=== PATIENT | female | born 2000 | race Caucasian/White ===

== ENCOUNTER 2022-05-02 12:47 | Inpatient (IN) | payer BC ==
[2022-05-02] MEDS ORDERED: Nalbuphine 10 MG/0.5 ML Syringe IVPUSH PRN (12:51)
[2022-05-02] MEDS ORDERED: Ondansetron 4 MG/2 ML SDV IVPUSH PRN (12:51)
[2022-05-02] MEDS ORDERED: Sodium Chloride 0.9% 10 ML Syringe FLUSH PRN (12:51)
[2022-05-02] MEDS ORDERED: Oxytocin/Lactated Ringers 10 UNIT/1,000 ML BAG IV SCH ×2 (13:00)
[2022-05-02] MEDS ORDERED: Lactated Ringers 1,000 ML IV SCH (13:00)
[2022-05-02] MEDS ORDERED: Sodium Chloride 0.9% 10 ML Syringe FLUSH SCH (21:00)
[2022-05-02] MEDS ORDERED: Lidocaine 1% 50 ML MDV ONE (22:04)
[2022-05-02] MEDS ORDERED: Lidocaine 1% 20 ML MDV INFILT ONE (22:27)
[2022-05-02] MEDS ORDERED: Benzocaine/Menthol 20%-0.5% Spray 78 GM Cannister TOP PRN (22:58)
[2022-05-02] MEDS ORDERED: Witch Hazel Medicated Pads 40/Jar TOP PRN (22:58)
[2022-05-02] MEDS ORDERED: Acetaminophen 325 MG Tab PO PRN (22:58)
[2022-05-02] MEDS ORDERED: Docusate Sodium 100 MG Cap PO PRN (22:58)
[2022-05-03] MEDS: Ibuprofen 600 MG Tab PO PRN (00:51)
[2022-05-04] MEDS: Ibuprofen 600 MG Tab PO PRN (02:50)
== END 2022-05-04 10:26 | disposition home or self-care (01) | DRG 560 ==
LOC: JD.OB 12:47 → OBSVTOIN 21:57 → JD.OB 21:58
PROVIDERS: ADMIT Obstetrics & Gynecology; ATTEND Obstetrics & Gynecology
PROC: 10E0XZZ Delivery of Products of Conception, External Approach (ICD-10-PCS; principal; 2022-05-02)
PROC: 10907ZC Drainage of Amniotic Fluid, Therapeutic from Products of Conception, Via Natural or Artificial Opening (ICD-10-PCS; 2022-05-02)
PROC: 3E033VJ Introduction of Other Hormone into Peripheral Vein, Percutaneous Approach (ICD-10-PCS; 2022-05-02)
PROC: 0KQM0ZZ Repair Perineum Muscle, Open Approach (ICD-10-PCS; 2022-05-02)
PROC: 0UQMXZZ Repair Vulva, External Approach (ICD-10-PCS; 2022-05-02)
DX: O48.0 Post-term pregnancy (principal); Z37.0 Single live birth; O69.81X0 Labor and delivery complicated by cord around neck, without compression, not applicable or unspecified; O70.1 Second degree perineal laceration during delivery; Z91.030 Bee allergy status; Z3A.40 40 weeks gestation of pregnancy
CPT/HCPCS: 36415; 59025; 59409; 85027; 86592; 86850; 86900; 86901; A9270-GY; J2590; J7120

== ENCOUNTER 2023-12-10 07:08 | Inpatient (IN) | payer BC, MEDICAID ==
[2023-12-10] MEDS ORDERED: Lidocaine 1% 50 ML MDV INJECT PRN (07:14)
[2023-12-10] MEDS ORDERED: Ondansetron 4 MG/2 ML SDV IVPUSH PRN (07:14)
[2023-12-10] MEDS ORDERED: Nalbuphine 10 MG/1 ML Vial IVPUSH PRN (07:14)
[2023-12-10] MEDS ORDERED: Sodium Chloride 0.9% 10 ML Syringe FLUSH PRN (07:14)
[2023-12-10] MEDS ORDERED: Acetaminophen 325 MG Tab PO PRN ×2 (07:14→13:31)
[2023-12-10] MEDS ORDERED: Oxytocin/0.9 % Sodium Chloride 30 UNIT/500 ML BAG IV SCH (07:15)
[2023-12-10 08:26] LABS: BASOPHILS ABSOLUTE AUTO 0.1 K/mm3 (0.0-0.2); BASOPHILS PERCENT AUTO 0.6 % (0.0-1.0); EOSINOPHILS ABSOLUTE AUTO 0.1 K/mm3 (0.0-0.4); EOSINOPHILS PERCENT AUTO 0.7 % (0.0-6.0); HEMATOCRIT 36.8 % (37.0-47.0); HEMOGLOBIN 12.4 gm/dl (12.0-16.0); IMMATURE GRAN ABSOLUTE AUTO 0.07 K/mm3 (0.00-0.05); IMMATURE GRAN PERCENT AUTO 0.7 % (0.0-0.4); LYMPHOCYTES ABSOLUTE AUTO 1.6 K/mm3 (1.0-4.8); LYMPHOCYTES PERCENT AUTO 16.4 % (24.0-44.0); MEAN CORPUSCULAR HEMOGLOBIN 28.7 pg (28.0-32.0); MEAN CORPUSCULAR HGB CONC 33.7 g/dl (32.0-36.0); MEAN CORPUSCULAR VOLUME 85.2 fl (83.0-99.0); MEAN PLATELET VOLUME 9.1 fl (9.4-12.3); MONOCYTES ABSOLUTE AUTO 0.8 K/mm3 (0.0-0.8); MONOCYTES PERCENT AUTO 8.2 % (0.0-8.0); NEUTROPHILS ABSOLUTE AUTO 6.9 K/mm3 (1.8-7.7); NEUTROPHILS PERCENT AUTO 73.4 % (41.0-71.0); PLATELET COUNT,PLT 180 K/mm3 (150-400); RED BLOOD CELL COUNT 4.32 M/mm3 (4.10-5.30); WHITE BLOOD CELL COUNT,WBC 9.46 K/mm3 (3.9-11.3)
[2023-12-10] MEDS: Oxytocin/0.9 % Sodium Chloride 30 UNIT/500 ML BAG IV SCH (09:03)
[2023-12-10] MEDS: Sodium Chloride 0.9% 10 ML Syringe FLUSH SCH (09:03)
[2023-12-10] MEDS: Lactated Ringers 1,000 ML IV SCH (09:03)
[2023-12-10] MEDS ORDERED: Benzocaine/Menthol 20%-0.5% Spray 78 GM Cannister TOP PRN (13:31)
[2023-12-10] MEDS ORDERED: Docusate Sodium 100 MG Cap PO PRN (13:31)
[2023-12-10] MEDS: Ibuprofen 600 MG Tab PO SCH (15:01)
[2023-12-10] MEDS: Witch Hazel Medicated Pads 40/Jar TOP PRN (15:01)
== END 2023-12-11 15:22 | disposition home or self-care (01) | DRG 560 ==
LOC: JD.OBCHECK 07:08 → JD.OB 07:11 → JD.OBCHECK 07:12 → JD.OB 07:13 → OBSVTOIN 12:51 → JD.OB 12:52
PROVIDERS: ADMIT Obstetrics & Gynecology; ATTEND Obstetrics & Gynecology
PROC: 10E0XZZ Delivery of Products of Conception, External Approach (ICD-10-PCS; principal; 2023-12-10)
PROC: 10907ZC Drainage of Amniotic Fluid, Therapeutic from Products of Conception, Via Natural or Artificial Opening (ICD-10-PCS; 2023-12-10)
PROC: 3E033VJ Introduction of Other Hormone into Peripheral Vein, Percutaneous Approach (ICD-10-PCS; 2023-12-10)
DX: O71.82 Other specified trauma to perineum and vulva (principal); Z37.0 Single live birth; Z3A.39 39 weeks gestation of pregnancy
CPT/HCPCS: 36415; 59025; 59409; 85025; 86850; 86900; 86901; J7120; J7999